=== PATIENT | male | born 1970 | race Caucasian/White ===

== ENCOUNTER 2019-06-07 17:11 | Emergency (ER) | payer SELFPAY ==
--- NOTE | 2019-06-07 17:48 | EDPHYS ---
Physician Documentation [facility] Name: Daniel Galindo Age: 48 yrs Sex: Male : 1970 Arrival Date: 06/07/2019 Time: 17:14 Bed 17 Private MD: ED Physician Marcello Costa HPI: 06/07 17:40 This 48 yrs old Male presents to ER via Ambulatory with complaints of High cp Blood Pressure. 17:40 The patient has elevated blood pressure and discovered this at a physician's office, cp and sent to the emergency department for evaluation. Onset: The symptoms/episode began/occurred today. Associated signs and symptoms: The patient has no apparent associated signs or symptoms. Severity of symptoms: in the emergency department the blood pressure is unchanged. Patient denies history of hypertension. Historical: - Allergies: 17:17 No Known Allergies; tw2 - Home Meds: 17:17 None [Active]; tw2 - PMHx: 17:17 None; tw2 - PSHx: 17:17 right knee surgery; tw2 - Immunization history:: Adult Immunizations. - Social history:: Smoking status: . - Ebola Screening: : Patient denies travel to an Ebola-affected area in the 21 days before illness onset. ROS: 17:44 Eyes: Negative for injury, pain, redness, and discharge. cp 17:44 Constitutional: Negative for body aches, chills, fever. 17:44 Cardiovascular: Negative for chest pain, edema, palpitations. 17:44 Respiratory: Negative for cough, shortness of breath, wheezing. 17:44 Abdomen/GI: Negative for abdominal pain, nausea, vomiting, and diarrhea. 17:44 Neuro: Negative for altered mental status, headache, numbness, weakness. 17:44 All other systems are negative. Exam: 17:45 Head/Face: Normocephalic, atraumatic. cp 17:45 Constitutional: The patient appears in no acute distress, alert, awake, non-diaphoretic, non-toxic, well developed, well nourished. 17:45 Eyes: Periorbital structures: appear normal, Conjunctiva: normal, no exudate, no injection, Lids and lashes: appear normal, bilaterally. 17:45 ENT: External ear(s): are unremarkable, Nose: is normal, Mouth: Lips: moist, Oral mucosa: pink and intact, moist, Posterior pharynx: is normal, airway is patent, no erythema, no exudate. 17:45 Chest/axilla: Inspection: normal. 17:45 Cardiovascular: Rate: normal. 17:45 Respiratory: the patient does not display signs of respiratory distress, Respirations: normal, no use of accessory muscles, no retractions, no splinting, no tachypnea. 17:45 Abdomen/GI: Inspection: abdomen appears normal. 17:45 Neuro: Orientation: to person, place \T\ time. Mentation: is normal, Cerebellar function: is grossly normal, Motor: moves all fours, strength is normal, Sensation: is normal, Gait: is steady, at a normal pace, without difficulty. Vital Signs: 17:17 BP 193 / 111; Pulse 99; Resp 17; Temp 98.2(TE); Pulse Ox 95% on R/A; Weight 99.79 kg tw2 (R); Pain 0/10; MDM: 17:26 Patient medically screened. cp 17:46 Data reviewed: vital signs, nurses notes. cp Administered Medications: No medications were administered Disposition: 06/08 07:22 Co-signature as Attending Physician, Marcello Costa MD I agree with the assessment and [facility] plan of care. Disposition: 06/07/19 17:48 Patient left the facility after being seen by provider. Preliminary diagnosis is Elevated blood-pressure reading, without diagnosis of hypertension. - Patient left due to unknown. - Condition is Stable. - Problem is new. - Symptoms are unchanged. Signatures: Marcello Costa MD MD cha Page, Corey, PA PA cp Tierney Greenwood RN RN tw2 Kailyn Shaffer RN RN ca1 Corrections: (The following items were deleted from the chart) 06/07 17:45 17:37 Vital Signs ordered. cp ca1 17:54 17:48 06/07/2019 17:48 Patient left the facility after being seen by provider. ca1 Preliminary diagnosis is Elevated blood-pressure reading, without diagnosis of hypertension. Reason stated they are leaving due to unknown. Condition is Stable. Problem is new. Symptoms are unchanged. cp
--- NOTE | 2019-06-07 17:48 | ER ---
Nurse's Notes [facility] Name: Daniel Galindo Age: 48 yrs Sex: Male : 1970 Arrival Date: 06/07/2019 Time: 17:14 Bed 17 Private MD: Diagnosis: Elevated blood-pressure reading, without diagnosis of hypertension Presentation: 06/07 17:14 Transition of care: patient was not received from another setting of care. Onset of tw2 symptoms was June 07, 2019. Risk Assessment: Do you want to hurt yourself or someone else? Patient reports no desire to harm self or others. Initial Sepsis Screen: Does the patient meet any 2 criteria? No. Patient's initial sepsis screen is negative. Does the patient have a suspected source of infection? No. Patient's initial sepsis screen is negative. Care prior to arrival: None. 17:14 Method Of Arrival: Ambulatory tw2 17:14 Acuity: RUBINA 3 tw2 17:16 Presenting complaint: Patient states: i just went to the eye dr and he said i have tw2 hypertension and that i could have a stroke. Triage Assessment: 17:14 General: Appears in no apparent distress. Behavior is calm, cooperative, appropriate tw2 for age. Pain: Denies pain. Historical: - Allergies: 17:17 No Known Allergies; tw2 - Home Meds: 17:17 None [Active]; tw2 - PMHx: 17:17 None; tw2 - PSHx: 17:17 right knee surgery; tw2 - Immunization history:: Adult Immunizations. - Social history:: Smoking status: . - Ebola Screening: : Patient denies travel to an Ebola-affected area in the 21 days before illness onset. Screenin:14 Abuse screen: Denies threats or abuse. Nutritional screening: No deficits noted. tw2 Tuberculosis screening: No symptoms or risk factors identified. Fall Risk None identified. Assessment: 17:40 Reassessment: Pt exited room states, " I'm not going to stay, I don't need to get ph another high bill just for someone to tell me I need to go see a physician. I know my blood pressure will be even higher when they check it." Explained to pt that we could evaluate him further if needed, also explained the dangers of untreated hypertension. Pt states, "I know but I just want to leave, I can't afford a high bill." Explained to pt that he could return to ED for evaluation if symptoms worsened or if he changed his mind, pt to be charted out as AMA, no IV in place. Vital Signs: 17:17 BP 193 / 111; Pulse 99; Resp 17; Temp 98.2(TE); Pulse Ox 95% on R/A; Weight 99.79 kg tw2 (R); Pain 0/10; ED Course: 17:14 Patient arrived in ED. mr 17:14 Triage completed. tw2 17:14 Arm band placed on. tw2 17:18 Bed in low position. Call light in reach. tw2 17:25 Marcello Rodriguez PA is PHCP. cp 17:25 Marcello Costa MD is Attending Physician. cp 17:26 Kailyn Shaffer, RN is Primary Nurse. ca1 Administered Medications: No medications were administered Outcome: 17:46 Eloped from patient exam room, after seeing physician Time discovered patient gone: ca1 June 07, 2019 at 17:40 17:54 Patient left the ED. ca1 Signatures: Daniela Thomas Renetta Delgado, RN RN ph Marcello Rodriguez PA PA Tierney Lewis, RN RN tw2 Kailyn Shaffer RN RN ca1
[2019-06-07 18:51] VITALS: BP 193/111; TEMP 98.2; O2SAT 95
== END 2019-06-07 17:54 | disposition left against medical advice (07) ==
LOC: ER 17:11
DX: R03.0 Elevated blood-pressure reading, without diagnosis of hypertension (principal)
CPT/HCPCS: 99281